=== PATIENT | male | born 1970 | race African-American/Black ===

== ENCOUNTER 2019-10-28 10:39 | Inpatient (IN) ==
[2019-10-28] MEDS ORDERED: ceFAZolin 1,000 MG in SYRINGE 1 EACH IV ONE (11:59)
[2019-10-28 12:43] LABS: Basophils # 0.1 10*3/uL (0.0-0.2); Basophils % 0.8 % (0.0-0.8); Eosinophils # 0.4 10*3/uL (0.0-0.87); Hematocrit 22.3 VOL% (42.0-52.0); Hemoglobin 6.6 GM/DL (14.0-18.0); Immature Granulocytes % 0.3 %; Immature Granulocytes Absolute 0.02 #; Lymphocytes # 1.5 10*3/uL (1.4-4.0); Lymphocytes % 22.5 % (21.2-54.2); Mean Corpuscular HGB Conc 29.6 GM/DL (32-36); Mean Corpuscular Volume 69.7 FL (87-102); Mean Platelet Volume 11.6 FL (9.6-12.0); Monocytes % 7.7 % (1.7-12.7); Neutrophils % 62.7 % (38.7-73.9); Platelet Count 272 T/CUMM (130-400); Red Cell Distribution Width 14.8 % (9.3-17.3); White Blood Count 6.7 T/CUMM (4-12)
[2019-10-28] MEDS ORDERED: LIDOCAINE 1% 20 ML VIAL ONE (12:53)
[2019-10-28] MEDS ORDERED: HEPARIN 5,000 UNIT/1 ML VIAL ONE (12:53)
[2019-10-28] MEDS ORDERED: BUPIVACAINE MPF 0.25% 30 ML VIAL ONE (12:53)
[2019-10-28 13:13] LABS: Calcium 8.8 MG/DL (8.5-10.1); Osmolality,Calculated 293.7 MOS/KG (273-304)
[2019-10-28] MEDS ORDERED: KETAMINE 500 MG/10 ML VIAL ONE (14:06)
[2019-10-28] MEDS ORDERED: LIDOCAINE 2% 5 ML VIAL ONE (14:06)
[2019-10-28] MEDS ORDERED: PROPOFOL 200 MG/20 ML VIAL IV ONE (14:06)
[2019-10-28] MEDS ORDERED: MIDAZOLAM 2 MG/2 ML VIAL ONE (14:06)
[2019-10-28] MEDS ORDERED: SODIUM CHLORIDE 0.9% 250 ML IV ONE (14:07)
[2019-10-28] MEDS ORDERED: fentaNYL 100 MCG/2 ML VIAL ONE (14:07)
[2019-10-28 20:57] LABS: Hepatitis B Core IgM Quant < 0.05 Index; Hepatitis B Surface Ag Quant < 0.10 Index; Hepatitis B Surface Ag Result Negative (Negative); Hepatitis C Virus Ab Quant 0.12 Index; Hepatitis C Virus Ab Result Negative (Negative)
[2019-10-28] MEDS: METOPROLOL SUCCINATE XL 100 MG TABLET PO SCH (22:20)
[2019-10-29 06:13] LABS: Hematocrit 25.4 VOL% (42.0-52.0); Hemoglobin 7.9 GM/DL (14.0-18.0)
[2019-10-29] MEDS ORDERED: HEPARIN 10,000 UNIT/10 ML VIAL IV PRN (06:44)
[2019-10-29] MEDS ORDERED: diphenhydrAMINE CAP 25 MG CAPSULE PO PRN (07:12)
[2019-10-29] MEDS ORDERED: GABAPENTIN 100 MG CAPSULE PO ONE (07:12)
[2019-10-29 08:16] VITALS: BP 164/89
[2019-10-29] MEDS ORDERED: amLODIPine 10 MG TABLET PO SCH (09:00)
[2019-10-29] MEDS ORDERED: METOPROLOL SUCCINATE XL 50 MG TABLET PO SCH (09:00)
[2019-10-29] MEDS ORDERED: FUROSEMIDE 80 MG TABLET PO SCH (09:00)
[2019-10-29] MEDS: METOPROLOL SUCCINATE XL 100 MG TABLET PO SCH (09:51)
== END 2019-10-29 16:35 | disposition home or self-care (01) | DRG 673 ==
LOC: N.3E 10:54
PROVIDERS: ADMIT Internal Medicine Nephrology; ATTEND Internal Medicine Nephrology